=== PATIENT | female | born 1965 | race African-American/Black ===

== ENCOUNTER 2017-05-21 19:14 | Emergency (ER) | payer OTHER ==
[2017-05-21 19:38] VITALS: BP 149/69; PULSE 82; TEMP 98.7; BMI 21.2
--- NOTE | 2017-05-21 19:38 | PDOC ---
Rapid Medical Evaluation Time Seen by Provider: 05/21/17 19:32 Medical Evaluation: Allergies Allergy/AdvReac Type Severity Reaction Status Date / Time No Known Allergies Allergy Verified 08/01/12 16:54 I have performed a brief in-person evaluation of this patient. The patient presents with a chief complaint of: substernal chest pain with vomiting; started treatment for h pylori 2 days ago. Pertinent physical exam findings: none I have ordered the following: ekg, labs The patient will proceed to the ED for further evaluation.
[2017-05-21 19:55] LABS: BASO % 0.6 % (0-2.0); EOS % 1.4 % (0-4.5); HEMATOCRIT 35.6 % (32.4-45.2); HEMOGLOBIN 11.4 GM/dL (10.7-15.3); LYMPH % 32.5 % (8-40); MCH 27.8 pg (25.7-33.7); MEAN CELL VOLUME 86.8 fl (80-96); MEAN PLT VOLUME 8.8 fl (7.5-11.1); NEUT % 51.5 % (42.8-82.8); PLATELET COUNT 335 K/MM3 (134-434); RBC 4.11 M/mm3 (3.60-5.2); RDW 16.7 % (11.6-15.6); WHITE BLOOD COUNT 3.3 K/mm3 (4.0-10.0)
[2017-05-21 20:27] LABS: ALBUMIN 3.6 g/dl (3.4-5.0); ANION GAP 7 (8-16); BILIRUBIN,TOTAL 0.3 mg/dL (0.2-1.0); BLOOD UREA NITROGEN 7 mg/dL (7-18); CHLORIDE 105 mmol/L (98-107); CO2 26 mmol/L (21-32); CREATININE 0.6 mg/dL (0.55-1.02); GLUCOSE,RANDOM 77 mg/dL (74-106); POTASSIUM 3.5 mmol/L (3.5-5.1); SGOT/AST 15 U/L (15-37); SODIUM 138 mmol/L (136-145); TOT PROT 7.2 g/dl (6.4-8.2)
[2017-05-21 20:33] LABS: ALK PHOS 96 U/L (45-117); SGPT/ALT 17 U/L (12-78)
[2017-05-21 20:35] LABS: LIPASE 225 U/L (73-393)
[2017-05-21] MEDS ORDERED: SODIUM CHLORIDE 0.9% 1000 ML INFUS.BAG IV ONE (21:06)
[2017-05-21] MEDS ORDERED: PANTOPRAZOLE SODIUM 40 MG VIAL IVPUSH ONE (21:09)
--- NOTE | 2017-05-21 21:09 | PDOC ---
History of Present Illness - General Chief Complaint: Chest Pain Stated Complaint: FATIGUE Time Seen by Provider: 05/21/17 19:32 - History of Present Illness Initial Comments: 05/21/17 21:08 CHIEF COMPLAINT: HISTORY OF PRESENT ILLNESS: 51 yo F with recent diagnosis of H. pylori presents to ED with epigastric pain radiating to back and midsternum and vomiting yesterday. Patient reports that she started taking metronidazole and reglan 1 week ago but didn't take any yesterday because she started vomiting and thought it was because of the medication. She states that she felt "a little runny nose and cough 3 days ago, but I didn't have a fever or anything, and that's pretty much gone now." She also c/o headache since yesterday but denies any dizziness, blurry vision, change in speech, difficulty walking. PAST MEDICAL HISTORY: Denies past medical history FAMILY HISTORY: Denies SOCIAL HISTORY: Current smoker. Denies alcohol, illicit drug use. SURGICAL HISTORY: Denies ALLERGIES: No known drug allergies REVIEW OF SYSTEMS General/Constitutional: Denies fever or chills. Denies weakness, weight change. HEENT: Denies change in vision. Denies ear pain or discharge. Denies sore throat. Cardiovascular: Denies chest pain or shortness of breath. Respiratory: Denies cough, wheezing, or hemoptysis. Gastrointestinal: Denies nausea, vomiting, diarrhea or constipation. Denies rectal bleeding. Genitourinary: Denies dysuria, frequency, or change in urination. Musculoskeletal: Denies joint or muscle swelling or pain. Denies neck or back pain. Skin and breasts: Denies rash or easy bruising. Neurologic: Denies headache, vertigo, loss of consciousness, or loss of sensation. Psychiatric: Denies depression or anxiety. Endocrine: Denies increased thirst. Denies abnormal weight change. Hematologic/Lymphatic: Denies anemia, easy bleeding, or history of blood clots. Allergic/Immunologic: Denies hives or skin allergy. Denies latex allergy. PHYSICAL EXAM General Appearance: Well-appearing, appropriately dressed. No apparent distress , no intoxication. HEENT: EOMI, PERRLA, normal ENT inspection, normal voice, TMs normal, pharynx normal. No conjunctival pallor. No photophobia, scleral icterus. Neck: Supple. Trachea midline. No tenderness, rigidity, carotid bruit, stridor , lymphadenopathy, or thyromegaly. Respiratory/Chest: Lungs CTAB. No shortness of breath, chest tenderness, respiratory distress, accessory muscle use. No crackles, rales, rhonchi, stridor , wheezing, dullness Cardiovascular: RRR. S1, S2. No JVD, murmur, bradycardia, tachycardia. Vascular Pulses: Dorsalis-Pedis (R): 2+, Dorsalis-Pedis (L): 2+ Gastrointestinal/Abdominal: Normal bowel sounds. Abdomen soft, non-distended. No tenderness or rebound tenderness. No organomegaly, pulsatile mass, guarding , hernia, hepatomegaly, splenomegaly. Lymphatic: No adenopathy, tenderness. Musculoskeletal/Extremities: Normal inspection. FROM of all extremities, normal capillary refill. Pelvis Stable. No CVA tenderness. No tenderness to extremities, pedal edema, swelling, erythema or deformity. Integumentary: Appropriate color, dry, warm. No cyanosis, erythema, jaundice or rash Neurologic: hot dog vendor II-XII intact. Fully oriented, alert. Appropriate mood/affect. Motor strength 5/5. No appreciable EOM palsy, facial droop or sensory deficit. 05/21/17 21:44 Past History - Past Medical History Allergies/Adverse Reactions: Allergies Allergy/AdvReac Type Severity Reaction Status Date / Time No Known Allergies Allergy Verified 05/21/17 22:40 Home Medications: Ambulatory Orders Albuterol Sulfate Inhaler - [Ventolin HFA Inhaler -] 1 - 2 inh IH Q4H #1 inhaler 07/28/12 Azithromycin [Zithromax] 250 mg PO ASDIR #6 tab 07/28/12 Dextromethorphan HBr [Delsym] 30 mg PO PRN 08/01/12 Promethazine HCl [Phenergan Plain] 5 ml PO TID 08/01/12 Pantoprazole Sodium [Protonix] 40 mg PO BID #28 tablet. 05/21/17 COPD: No GI Disorders: Yes (Hpyloria) - Suicide/Smoking/Psychosocial Hx Smoking Status: Yes Smoking History: Current every day smoker Have you smoked in the past 12 months: Yes Number of Cigarettes Smoked Daily: 10 Information on smoking cessation initiated: No Hx Alcohol Use: No Drug/Substance Use Hx: Yes Substance Use Type: Marijuana *Physical Exam - Vital Signs Last Vital Signs Temp Pulse Resp BP Pulse Ox 98.7 F 82 19 149/69 100 05/21/17 19:34 05/21/17 19:34 05/21/17 19:34 05/21/17 19:34 05/21/17 19:34 ED Treatment Course - LABORATORY CBC & Chemistry Diagram: 05/21/17 19:43 05/21/17 19:43 - ADDITIONAL ORDERS Additional order review: Laboratory Results 05/21/17 05/21/17 19:43 19:43 WBC 3.3 L RBC 4.11 Hgb 11.4 D Hct 35.6 MCV 86.8 MCH 27.8 MCHC 32.0 RDW 16.7 H D Plt Count 335 D MPV 8.8 D Neutrophils % 51.5 D Lymphocytes % 32.5 D Monocytes % 14.0 H Eosinophils % 1.4 Basophils % 0.6 Sodium 138 Potassium 3.5 Chloride 105 Carbon Dioxide 26 Anion Gap 7 L BUN 7 Creatinine 0.6 Creat Clearance w eGFR > 60 Random Glucose 77 Calcium 8.0 L Total Bilirubin 0.3 D AST 15 ALT 17 Alkaline Phosphatase 96 Creatine Kinase 71 Troponin I < 0.02 Total Protein 7.2 Albumin 3.6 Lipase 225 05/21/17 19:43 RBC 4.11 MCV 86.8 MCHC 32.0 RDW 16.7 H D MPV 8.8 D Neutrophils % 51.5 D Lymphocytes % 32.5 D Monocytes % 14.0 H Eosinophils % 1.4 Basophils % 0.6 Medical Decision Making - Medical Decision Making 05/21/17 19:50 51 yo F with recent diagnosis of H. pylori presents to ED with epigastric pain radiating to back and midsternum and vomiting yesterday labs ordered in E. clinical presentation consistent with GERD, chest discomfort less likely due to cardiac etiology. will give fluids, pepcid, toradol, zofran, protonix and reassess 05/21/17 22:50 Patient reassessed; at this time she states her headache has subsided and she is feeling better; albeit "very thirsty." *DC/Admit/Observation/Transfer Diagnosis at time of Disposition: Peptic ulcer associated with Helicobacter pylori infection - Discharge Dispostion Disposition: HOME Condition at time of disposition: Stable Admit: No - Prescriptions Prescriptions: Pantoprazole Sodium [Protonix] 40 mg PO BID #28 tablet.dr Mckeon Referrals Referrals: Rahul Pennington MD [Primary Care Provider] - Kevin Rea MD [Staff Physician] - - Patient Instructions Printed Discharge Instructions: DI for Peptic Ulcer, DI for Helicobacter Pylori Infection Additional Instructions: Please read discharge instructions carefully. Take medications as prescribed and stay well hydrated. As discussed, continue taking the antibiotics prescribed by Dr. Rea and follow up with him within the next 3-4 days. If you develop ANY black or bloody stool, palpitations, shortness of breath, lightheadedness, or any new or worsening symptoms, please return to the ER. - Post Discharge Activity
[2017-05-21] MEDS ORDERED: ONDANSETRON 4 MG/2 ML VIAL IVPUSH ONE (21:12)
[2017-05-21] MEDS ORDERED: FAMOTIDINE IV 20 MG/12 ML VIAL IVPUSH SCH (22:00)
[2017-05-21] MEDS ORDERED: ONDANSETRON 4 MG/2 ML VIAL ONE (22:15)
[2017-05-21] MEDS ORDERED: FAMOTIDINE 20 MG/50 ML IVPB 20 MG/50 ML MG IVPB ONE (22:16)
[2017-05-21] MEDS ORDERED: PANTOPRAZOLE SODIUM 40 MG VIAL ONE (22:16)
--- NOTE | 2017-05-22 08:52 | EKG ---
Test Reason : Blood Pressure : / mmHG Vent. Rate : 082 BPM Atrial Rate : 082 BPM P-R Int : 158 ms QRS Dur : 088 ms QT Int : 374 ms P-R-T Axes : 072 061 067 degrees QTc Int : 436 ms NORMAL SINUS RHYTHM SEPTAL INFARCT , AGE UNDETERMINED ABNORMAL ECG WHEN COMPARED WITH ECG OF 02-JUN-2011 10:50, NO SIGNIFICANT CHANGE WAS FOUND Confirmed by PACO FIERRO, TESSY ([id number]) on 05/22/2017 8:52:06 AM Referred By: Confirmed By:TESSY ANTONIO MD
== END 2017-05-21 23:39 | disposition home or self-care (01) ==
LOC: JER 19:14
PROC: 3E033GC Introduction of Other Therapeutic Substance into Peripheral Vein, Percutaneous Approach (ICD-10-PCS; principal; 2017-05-21)
PROC: 3E033GC Introduction of Other Therapeutic Substance into Peripheral Vein, Percutaneous Approach (ICD-10-PCS; 2017-05-21)
PROC: 3E033GC Introduction of Other Therapeutic Substance into Peripheral Vein, Percutaneous Approach (ICD-10-PCS; 2017-05-21)
DX: K27.9 Peptic ulcer, site unspecified, unspecified as acute or chronic, without hemorrhage or perforation (principal); B96.81 Helicobacter pylori [H. pylori] as the cause of diseases classified elsewhere
CPT/HCPCS: 36415; 80053; 82550; 83690; 84484; 85025; 93005; 93010; 96365; 96366; 96375; 99282-25

== ENCOUNTER 2020-12-08 21:53 | Emergency (ER) | payer OTHER ==
[2020-12-08 22:14] VITALS: BP 109/70; PULSE 81; TEMP 98; BMI 21.9
[2020-12-09] MEDS ORDERED: CYCLOBENZAPRINE HCL 10 MG TABLET (FP) PO ONE (00:20)
[2020-12-09] MEDS ORDERED: LIDOCAINE 5% TOPICAL PATCH TP ONE (00:21)
[2020-12-09] MEDS ORDERED: CYCLOBENZAPRINE HCL 10 MG TABLET (FP) ONE (00:30)
[2020-12-09] MEDS ORDERED: LIDOCAINE 5% TOPICAL PATCH ONE (00:30)
[2020-12-09] MEDS ORDERED: LACTULOSE 20 GM/30 ML UDC (FOR ORAL USE ONLY) PO ONE (01:54)
[2020-12-09] MEDS ORDERED: LACTULOSE 20 GM/30 ML UDC (FOR ORAL USE ONLY) ONE (02:03)
[2020-12-09] MEDS ORDERED: LIDOCAINE PATCH REMOVAL MC ONE (13:00)
== END 2020-12-09 02:11 | disposition home or self-care (01) ==
LOC: JER 21:53
DX: M54.41 Lumbago with sciatica, right side (principal); K59.00 Constipation, unspecified
CPT/HCPCS: 72070-TC-FY; 72100-TC-FY; 99283-25